=== PATIENT | male | born 1985 | race Caucasian/White ===

== ENCOUNTER 2023-11-28 17:16 | Inpatient (IN) | payer MEDICAID ==
[~2023-11-28] VITALS: Ht 180.3 cm; Wt 79.8 kg
[2023-11-28 17:16] VITALS: BP 168/90; PULSE 74; RESP 20; TEMP 98.4; O2SAT 100
[2023-11-28] MEDS ORDERED: NACL 0.9% 2,000 ML IV SCH (17:50)
[2023-11-28] MEDS: INSULIN REGULAR, HUMAN 100 UNIT/ML VIAL IVP ONE (18:25)
[2023-11-28 18:39] LABS: BASOPHILS # (AUTO) 0.1 K/uL (0.00-0.22); BASOPHILS % (AUTO) 0.3 % (0.0-2.0); EOSINOPHILS % (AUTO) 0.1 % (0.0-4.0); HEMATOCRIT 52.6 % (36-52); HEMOGLOBIN 16.3 g/dL (12.0-18.0); LYMPHOCYTES # (AUTO) 2.5 K/uL (2.0-11.5); LYMPHOCYTES % (AUTO) 11.3 % (20.5-51.1); MEAN CORPUSCULAR HEMOGLOBIN 30 pg (27-31); MEAN CORPUSCULAR HGB CONC 31 g/dL (33-37); MEAN CORPUSCULAR VOLUME 96.9 fL (80-94); MONOCYTES # (AUTO) 1.2 K/uL (0.8-1.0); MONOCYTES % (AUTO) 5.3 % (1.7-9.3); NEUTROPHILS # (AUTO) 18.2 K/uL (1.8-7.7); PLATELET COUNT (AUTO) 401 K/uL (140-450); RED BLOOD CELL COUNT(AUTO) 5.43 MIL/uL (4.20-6.10)
[2023-11-28] MEDS: SODIUM BICARBONATE 8.4% PFS 50 MEQ/50 ML SYR IVP ONE ×2 (18:40→21:30)
[2023-11-28] MEDS: INSULIN REGULAR, HUMAN 100 UNIT in NACL 0.9% 100 ML IV ONE ×2 (18:53→21:00)
[2023-11-28 18:55] LABS: ANION GAP 33.6 (8-16); CALCIUM 8.5 mg/dL (8.5-10.1); CREATININE 1.4 mg/dL (0.6-1.3); POTASSIUM 5.5 mmol/L (3.5-5.1)
[2023-11-28 18:59] LABS: INR 1.63 (0.8-1.2); PARTIAL THROMBOPLASTIN TIME 46.1 secs (22-35.6); PROTHROMBIN TIME 16.7 secs (10.8-13.4)
[2023-11-28 19:00] LABS: CARBON DIOXIDE 5.9 mmol/L (21-32)
[2023-11-28 19:02] LABS: ALANINE AMINOTRANSFERASE 28 U/L (12-78); ALBUMIN 3.8 g/dL (3.4-5.0); ALKALINE PHOSPHATASE 184 U/L (50-136); ASPARTATE AMINOTRANSFERASE 37 U/L (15-37); BILIRUBIN,DIRECT 0.1 mg/dL (0.0-0.3); CREATINE KINASE, TOTAL 206 U/L (39-308); LIPASE 180 U/L (16-77); TOTAL BILIRUBIN 0.6 mg/dL (0.0-1.0)
[2023-11-28 19:12] LABS: ACETONE, SERUM Negative (NEGATIVE)
[2023-11-28 19:14] LABS: LACTIC ACID 2.4 mmol/L (0.4-2.0)
[2023-11-28] MEDS: KCL 20 MEQ IN 100 mL PREMIX 200 ML IV ONE (19:28)
[2023-11-28] MEDS ORDERED: PIPERACILLIN/TAZOBACTAM 3.375 GM VIAL IV ONE (19:30)
[2023-11-28] MEDS: PIPERACILLIN/TAZOBACTAM 3.375 GM in DEXTROSE 5% 50 ML IV ONE (19:44)
[2023-11-28] MEDS ORDERED: LORazepam 2 MG/ML VIAL ONE (20:12)
[2023-11-28] MEDS ORDERED: INTUBATION KIT MC ONE (20:34)
[2023-11-28] MEDS ORDERED: SODIUM BICARBONATE 8.4% PFS 50 MEQ/50 ML SYR IVP ONE (20:34)
[2023-11-28] MEDS: INSULIN REGULAR, HUMAN 100 UNIT/ML VIAL IVP STA (20:44)
[2023-11-28 21:15] VITALS: BP 77/59; PULSE 75; PULSE 77; RESP 24; O2SAT 100
[2023-11-28] MEDS: NACL 0.9% 1,000 ML IV ONE ×2 (21:17→23:45)
[2023-11-28] MEDS ORDERED: ETOMIDATE 20 MG/10 ML VIAL IVP ONE (21:30)
[2023-11-28] MEDS: ETOMIDATE 20 MG/10 ML VIAL IVP ONE (21:33)
[2023-11-28] MEDS: ROCURONIUM 50 MG/5 ML VIAL IV ONE (21:33)
[2023-11-28 21:43] LABS: SALICYLATE 4.6 mg/dL (2.8-20.0)
[2023-11-28 21:46] VITALS: PULSE 89; RESP 30; O2SAT 100
[2023-11-28 21:46] LABS: ANION GAP 33.4 (8-16); CREATININE 1.3 mg/dL (0.6-1.3); POTASSIUM 4.6 mmol/L (3.5-5.1)
[2023-11-28] MEDS ORDERED: PROPOFOL 1000 MG/100 ML PREMIX 100 ML IV ONE (21:46)
[2023-11-28 21:59] LABS: CARBON DIOXIDE 5.2 mmol/L (21-32)
[2023-11-28] MEDS: PROPOFOL 1000 MG/100 ML PREMIX 100 ML IV ONE (22:00)
[2023-11-28 22:29] LABS: BLOOD GAS PCO2 32.3 mmHg (35-45); BLOOD GAS PH 6.713 (7.35-7.45); BLOOD GAS PO2 94.6 mmHg (75-100)
[2023-11-28 22:30] LABS: BLOOD GAS BASE EXCESS -32.3 mmol/L (-2.0-2.0); BLOOD GAS O2 SAT% 95.1 % (92.0-98.5)
[2023-11-28 22:50] LABS: APPEARANCE,URINE CLEAR (CLEAR); BILIRUBIN,URINE NEGATIVE (NEGATIVE); BLOOD, URINE 2+ (NEGATIVE); COLOR,URINE YELLOW (YELLOW); LEUKOCYTE ESTERASE ,URINE NEGATIVE (NEGATIVE); NITRITE, URINE NEGATIVE (NEGATIVE); PROTEIN,URINE 1+ (NEGATIVE); UGLUCOSE 3+ (NEGATIVE); UROBILINOGEN,URINE 0.2 EU/dL (0.2 - 1)
[2023-11-28] MEDS ORDERED: POTASSIUM CHL 20 MEQ/NACL 0.9% 1,000 ML IV SCH (22:50)
[2023-11-28] MEDS ORDERED: ONDANSETRON 4 MG/2 ML VIAL IVP PRN (22:50)
[2023-11-28] MEDS ORDERED: HYDROcodone/APAP 5/325 MG 1 TAB TAB PO PRN (22:50)
[2023-11-28 22:53] LABS: BACTERIA,URINE >30 (MANY) /HPF (None Seen); MUCUS,URINE 1+ /LPF (None Seen); RBC,URINE 0-5 /HPF (0-5); SQUAMOUS EPITHELIAL CELL,UR 0-3 (FEW) /LPF (0-3 (FEW)); WBC,URINE 0-5 /HPF (0-5)
[2023-11-28] MEDS ORDERED: BLOOD GLUCOSE MONITORING 1 DEV DEV FS SCH (23:00)
[2023-11-28] MEDS: fentaNYL citrate 1 MG in NACL 0.9% 80 ML IV PRN (23:15)
[2023-11-28 23:35] VITALS: PULSE 103; O2SAT 95
[2023-11-28] MEDS: LORazepam 2 MG/ML VIAL IVP STA (23:45)
[2023-11-28] MEDS: NOREPINEPHRINE 4 MG in DEXTROSE 5% 250 ML IV PRN (23:45)
[2023-11-28 23:46] LABS: FLU A ANTIGEN negative (NEGATIVE); FLU B ANTIGEN NEGATIVE (NEGATIVE)
[2023-11-28 23:47] LABS: BLOOD GAS BASE EXCESS -31.1 mmol/L (-2.0-2.0); BLOOD GAS HCO3 4.2 mmol/L (22-26); BLOOD GAS O2 SAT% 97.3 % (92.0-98.5); BLOOD GAS PCO2 30.5 mmHg (35-45); BLOOD GAS PO2 113.1 mmHg (75-100)
[2023-11-28 23:55] VITALS: PULSE 80; RESP 30; O2SAT 95
[2023-11-29] VITALS (21 sets, daily range): BP systolic 75–135; BP diastolic 36–94; PULSE 80–133; RESP 21–40; TEMP 91.5–100.3; O2SAT 91–100
[2023-11-29] MEDS: fentaNYL citrate 0.05 MG/ML VIAL ONE
[2023-11-29] MEDS: BLOOD GLUCOSE MONITORING 1 DEV DEV FS SCH (01:00)
[2023-11-29 01:20] LABS: ANION GAP 29.2 (8-16); CALCIUM 7.7 mg/dL (8.5-10.1); CREATININE 1.4 mg/dL (0.6-1.3); POTASSIUM 3.7 mmol/L (3.5-5.1)
[2023-11-29 01:24] LABS: MAGNESIUM 2.2 mg/dL (1.8-2.4); PHOSPHORUS 4.4 mg/dL (2.5-4.9)
[2023-11-29 01:27] LABS: CARBON DIOXIDE 9.5 mmol/L (21-32)
[2023-11-29] MEDS: NACL 0.9% 1,000 ML IV SCH ×3 (01:40→08:53)
[2023-11-29] MEDS: DEXT 5% / NACL 0.45% 1,000 ML IV SCH (01:40)
[2023-11-29] MEDS: SODIUM BICARBONATE 8.4% PFS 50 MEQ/50 ML SYR IVP ONE (02:15)
[2023-11-29] MEDS: NACL 0.9% 1,000 ML IV ONE (02:17)
[2023-11-29] MEDS: INSULIN REGULAR, HUMAN 100 UNIT in NACL 0.9% 100 ML IV SCH (02:18)
[2023-11-29] MEDS: SODIUM BICARBONATE 8.4% PFS 50 MEQ/50 ML SYR IVP SCH ×4 (02:22→14:34)
[2023-11-29 04:03] LABS: BASOPHILS # (AUTO) 0.1 K/uL (0.00-0.22); BASOPHILS % (AUTO) 0.4 % (0.0-2.0); EOSINOPHILS % (AUTO) 0.1 % (0.0-4.0); HEMATOCRIT 39.4 % (36-52); HEMOGLOBIN 13.2 g/dL (12.0-18.0); LYMPHOCYTES # (AUTO) 2.8 K/uL (2.0-11.5); LYMPHOCYTES % (AUTO) 15.4 % (20.5-51.1); MEAN CORPUSCULAR HEMOGLOBIN 30 pg (27-31); MEAN CORPUSCULAR HGB CONC 34 g/dL (33-37); MEAN CORPUSCULAR VOLUME 89.4 fL (80-94); MONOCYTES # (AUTO) 0.8 K/uL (0.8-1.0); MONOCYTES % (AUTO) 4.7 % (1.7-9.3); NEUTROPHILS # (AUTO) 14.3 K/uL (1.8-7.7); NEUTROPHILS % (AUTO) 79.4 % (42.2-75.2); PLATELET COUNT (AUTO) 241 K/uL (140-450); RED BLOOD CELL COUNT(AUTO) 4.41 MIL/uL (4.20-6.10)
[2023-11-29] MEDS: NOREPINEPHRINE 4 MG/4 ML VIAL IV ONE ×3 (04:08→09:41)
[2023-11-29 04:15] LABS: ANION GAP 28.2 (8-16); CALCIUM 7.3 mg/dL (8.5-10.1); CREATININE 1.6 mg/dL (0.6-1.3)
[2023-11-29 04:17] LABS: PHOSPHORUS 3.3 mg/dL (2.5-4.9)
[2023-11-29 04:28] LABS: CARBON DIOXIDE 8.8 mmol/L (21-32)
[2023-11-29] MEDS: PROPOFOL 1000 MG/100 ML PREMIX 100 ML IV PRN (05:54)
[2023-11-29] MEDS ORDERED: COMMUNICATION ORDER MC PRN (08:45)
[2023-11-29 09:17] LABS: ANION GAP 24.2 (8-16); CALCIUM 7.2 mg/dL (8.5-10.1); CARBON DIOXIDE 11.4 mmol/L (21-32); CREATININE 2.2 mg/dL (0.6-1.3); POTASSIUM 3.6 mmol/L (3.5-5.1)
[2023-11-29 09:19] LABS: BLOOD GAS PCO2 20.5 mmHg (35-45); BLOOD GAS PH 7.069 (7.35-7.45); BLOOD GAS PO2 106.2 mmHg (75-100)
[2023-11-29 09:20] LABS: BLOOD GAS BASE EXCESS -22.7 mmol/L (-2.0-2.0); BLOOD GAS HCO3 5.8 mmol/L (22-26); BLOOD GAS O2 SAT% 98.1 % (92.0-98.5)
[2023-11-29 09:20] LABS: MAGNESIUM 1.8 mg/dL (1.8-2.4)
[2023-11-29] MEDS: DOCUSATE SODIUM 100 MG GELCAP PO SCH (09:25)
[2023-11-29] MEDS: PANTOPRAZOLE 40 MG INJ VIAL IVP SCH (09:25)
[2023-11-29] MEDS: NOREPINEPHRINE 16 MG in DEXTROSE 5% 250 ML IV PRN (09:45)
[2023-11-29 09:57] LABS: PHOSPHORUS 0.7 mg/dL (2.5-4.9)
[2023-11-29] MEDS ORDERED: VANCOMYCIN PER PHARMACY MC PRN (11:20)
[2023-11-29 11:50] LABS: ALBUMIN 2.1 g/dL (3.4-5.0); ANION GAP 23.5 (8-16); CALCIUM 7.4 mg/dL (8.5-10.1); CARBON DIOXIDE 11.9 mmol/L (21-32); CREATININE 2.4 mg/dL (0.6-1.3); POTASSIUM 3.4 mmol/L (3.5-5.1); TOTAL BILIRUBIN 0.5 mg/dL (0.0-1.0); TOTAL PROTEIN, SERUM 5.3 g/dL (6.4-8.2)
[2023-11-29] MEDS: POTASSIUM PHOSPHATE 30 MM in NACL 0.9% 500 ML IV SCH (12:03)
[2023-11-29] MEDS: PIPERACILLIN/TAZOBACTAM 3.375 GM in DEXTROSE 5% 50 ML IV SCH (12:03)
[2023-11-29] MEDS ORDERED: NACL 0.9% 1,000 ML IV SCH ×2 (12:15→14:20)
[2023-11-29] MEDS ORDERED: FOAM DRESSING TP PRN (13:00)
[2023-11-29] MEDS ORDERED: GAUZE TP PRN (13:00)
[2023-11-29] MEDS: GAUZE TP SCH (13:10)
[2023-11-29] MEDS: VANCOMYCIN 1,500 MG in DEXTROSE 5% 500 ML IV SCH (13:14)
[2023-11-29 13:15] LABS: ANION GAP 25.2 (8-16); CALCIUM 7.4 mg/dL (8.5-10.1); CREATININE 2.5 mg/dL (0.6-1.3); POTASSIUM 3.3 mmol/L (3.5-5.1)
[2023-11-29 13:19] LABS: MAGNESIUM 1.7 mg/dL (1.8-2.4)
[2023-11-29 13:33] LABS: CARBON DIOXIDE 8.1 mmol/L (21-32)
[2023-11-29 13:35] LABS: PHOSPHORUS 0.6 mg/dL (2.5-4.9)
[2023-11-29] MEDS: SODIUM BICARBONATE 8.4% 100 MEQ in NACL 0.45% 1,000 ML IV SCH (15:59)
[2023-11-29 17:17] LABS: ANION GAP 22.4 (8-16); CARBON DIOXIDE 12.7 mmol/L (21-32); CREATININE 2.7 mg/dL (0.6-1.3); POTASSIUM 3.1 mmol/L (3.5-5.1)
[2023-11-29] MEDS: ACETAMINOPHEN 650 MG/20.3 ML UDC PO PRN (17:49)
[2023-11-29] MEDS: KCL 20 MEQ IN 100 mL PREMIX 100 ML IV PRN (18:10)
[2023-11-29] MEDS: fentaNYL citrate 1 MG in NACL 0.9% 80 ML IV PRN (18:41)
[2023-11-29] MEDS: MEROPENEM 1,000 MG in NACL 0.9% 50 ML IV SCH (20:29)
[2023-11-29 20:50] LABS: ANION GAP 21.2 (8-16); CALCIUM 6.8 mg/dL (8.5-10.1); CREATININE 2.7 mg/dL (0.6-1.3); POTASSIUM 3.2 mmol/L (3.5-5.1)
[2023-11-30] VITALS (30 sets, daily range): BP systolic 11–143; BP diastolic 56–89; PULSE 111–130; RESP 20–35; TEMP 98.8–101; O2SAT 96–98
[2023-11-30 00:59] LABS: ANION GAP 19.7 (8-16); CALCIUM 6.8 mg/dL (8.5-10.1); CARBON DIOXIDE 15.2 mmol/L (21-32); CREATININE 2.9 mg/dL (0.6-1.3)
[2023-11-30 01:01] LABS: POTASSIUM 2.9 mmol/L (3.5-5.1)
[2023-11-30] MEDS: NOREPINEPHRINE 4 MG/4 ML VIAL IV ONE (01:28)
[2023-11-30] MEDS: KCL 20 MEQ IN 100 mL PREMIX 200 ML IV PRN (01:34)
[2023-11-30 04:17] LABS: BASOPHILS % (AUTO) 0.1 % (0.0-2.0); EOSINOPHILS % (AUTO) 0.1 % (0.0-4.0); HEMATOCRIT 37.3 % (36-52); HEMOGLOBIN 13.6 g/dL (12.0-18.0); LYMPHOCYTES # (AUTO) 0.5 K/uL (2.0-11.5); MEAN CORPUSCULAR HEMOGLOBIN 32 pg (27-31); MEAN CORPUSCULAR HGB CONC 37 g/dL (33-37); MEAN CORPUSCULAR VOLUME 86.8 fL (80-94); MONOCYTES # (AUTO) 0.7 K/uL (0.8-1.0); MONOCYTES % (AUTO) 6.6 % (1.7-9.3); NEUTROPHILS % (AUTO) 88.2 % (42.2-75.2); PLATELET COUNT (AUTO) 126 K/uL (140-450); RED CELL DISTRIBUTION WIDTH 15.7 % (11.6-13.7); WHITE BLOOD COUNT (AUTO) 10.2 K/uL (4.8-10.8)
[2023-11-30 04:37] LABS: ANION GAP 21.5 (8-16); CALCIUM 6.6 mg/dL (8.5-10.1); CARBON DIOXIDE 13.6 mmol/L (21-32); CREATININE 2.9 mg/dL (0.6-1.3); POTASSIUM 3.1 mmol/L (3.5-5.1)
[2023-11-30 04:42] LABS: MAGNESIUM 1.5 mg/dL (1.8-2.4)
[2023-11-30 04:46] LABS: PHOSPHORUS 0.9 mg/dL (2.5-4.9)
[2023-11-30] MEDS: PANTOPRAZOLE 40 MG INJ VIAL IVP SCH (08:20)
[2023-11-30] MEDS: DOCUSATE 100 MG/10 ML UDC GT SCH (08:21)
[2023-11-30 08:31] LABS: ANION GAP 21.1 (8-16); CALCIUM 6.3 mg/dL (8.5-10.1); CARBON DIOXIDE 15.3 mmol/L (21-32); POTASSIUM 3.4 mmol/L (3.5-5.1)
[2023-11-30 08:35] LABS: MAGNESIUM 1.3 mg/dL (1.8-2.4)
[2023-11-30] MEDS: POTASSIUM PHOSPHATE 15 MM in NACL 0.9% 250 ML IV ONE (09:34)
[2023-11-30] MEDS: MAG SULF 2000 MG/WATER PREMIX 100 ML IV PRN (11:06)
[2023-11-30 12:33] LABS: ANION GAP 20.1 (8-16); CALCIUM 6.3 mg/dL (8.5-10.1); CARBON DIOXIDE 16.3 mmol/L (21-32); CREATININE 3.3 mg/dL (0.6-1.3); POTASSIUM 3.4 mmol/L (3.5-5.1)
[2023-11-30 12:37] LABS: MAGNESIUM 1.4 mg/dL (1.8-2.4); PHOSPHORUS 1.7 mg/dL (2.5-4.9)
[2023-11-30 17:25] LABS: ANION GAP 17.1 (8-16); CALCIUM 6.2 mg/dL (8.5-10.1); CARBON DIOXIDE 19.1 mmol/L (21-32); CREATININE 3.4 mg/dL (0.6-1.3); POTASSIUM 3.2 mmol/L (3.5-5.1)
[2023-11-30 17:41] LABS: MAGNESIUM 1.7 mg/dL (1.8-2.4); PHOSPHORUS 1.7 mg/dL (2.5-4.9)
[2023-11-30 20:49] LABS: ANION GAP 17.8 (8-16); CALCIUM 6.3 mg/dL (8.5-10.1); CARBON DIOXIDE 18.2 mmol/L (21-32); CREATININE 3.5 mg/dL (0.6-1.3)
[2023-11-30 21:04] LABS: MAGNESIUM 1.7 mg/dL (1.8-2.4); PHOSPHORUS 1.6 mg/dL (2.5-4.9)
[2023-12-01] VITALS (35 sets, daily range): BP systolic 93–124; BP diastolic 61–81; PULSE 76–111; RESP 13–32; TEMP 97.9–98.7; O2SAT 96–100
[2023-12-01 00:56] LABS: ANION GAP 14.3 (8-16); CALCIUM 6.3 mg/dL (8.5-10.1); CARBON DIOXIDE 20.6 mmol/L (21-32); CREATININE 3.5 mg/dL (0.6-1.3)
[2023-12-01 00:59] LABS: POTASSIUM 2.9 mmol/L (3.5-5.1)
[2023-12-01 01:02] LABS: MAGNESIUM 1.9 mg/dL (1.8-2.4); PHOSPHORUS 1.7 mg/dL (2.5-4.9)
[2023-12-01 01:29] LABS: BLOOD GAS HCO3 17.2 mmol/L (22-26); BLOOD GAS PCO2 27.9 mmHg (35-45); BLOOD GAS PH 7.408 (7.35-7.45); BLOOD GAS PO2 73.8 mmHg (75-100)
[2023-12-01 01:33] LABS: BLOOD GAS O2 SAT% 96.2 % (92.0-98.5)
[2023-12-01 05:42] LABS: BASOPHILS % (AUTO) 0.2 % (0.0-2.0); EOSINOPHILS % (AUTO) 0.2 % (0.0-4.0); HEMATOCRIT 31.4 % (36-52); HEMOGLOBIN 11.3 g/dL (12.0-18.0); LYMPHOCYTES # (AUTO) 0.8 K/uL (2.0-11.5); LYMPHOCYTES % (AUTO) 7.3 % (20.5-51.1); MEAN CORPUSCULAR HEMOGLOBIN 31 pg (27-31); MEAN CORPUSCULAR HGB CONC 36 g/dL (33-37); MEAN CORPUSCULAR VOLUME 86.2 fL (80-94); MONOCYTES # (AUTO) 0.4 K/uL (0.8-1.0); MONOCYTES % (AUTO) 3.1 % (1.7-9.3); NEUTROPHILS # (AUTO) 10.1 K/uL (1.8-7.7); NEUTROPHILS % (AUTO) 89.2 % (42.2-75.2); PLATELET COUNT (AUTO) 95 K/uL (140-450); RED BLOOD CELL COUNT(AUTO) 3.65 MIL/uL (4.20-6.10); RED CELL DISTRIBUTION WIDTH 15.9 % (11.6-13.7); WHITE BLOOD COUNT (AUTO) 11.4 K/uL (4.8-10.8)
[2023-12-01 05:58] LABS: CALCIUM 6.6 mg/dL (8.5-10.1); CARBON DIOXIDE 18.9 mmol/L (21-32); CREATININE 3.5 mg/dL (0.6-1.3)
[2023-12-01 06:01] LABS: POTASSIUM 2.9 mmol/L (3.5-5.1)
[2023-12-01 06:32] LABS: MAGNESIUM 2.9 mg/dL (1.8-2.4); PHOSPHORUS 1.6 mg/dL (2.5-4.9)
[2023-12-01 08:39] LABS: BLOOD GAS PCO2 35.2 mmHg (35-45); BLOOD GAS PH 7.347 (7.35-7.45)
[2023-12-01 08:42] LABS: BLOOD GAS PO2 34.2 mmHg (75-100)
[2023-12-01 08:43] LABS: BLOOD GAS BASE EXCESS -6.1 mmol/L (-2.0-2.0); BLOOD GAS HCO3 18.9 mmol/L (22-26)
[2023-12-01 09:18] LABS: ANION GAP 14.5 (8-16); CALCIUM 6.4 mg/dL (8.5-10.1); CARBON DIOXIDE 21.1 mmol/L (21-32); CREATININE 3.5 mg/dL (0.6-1.3)
[2023-12-01 09:20] LABS: POTASSIUM 2.6 mmol/L (3.5-5.1)
[2023-12-01 09:24] LABS: MAGNESIUM 2.6 mg/dL (1.8-2.4); PHOSPHORUS 1.9 mg/dL (2.5-4.9)
[2023-12-01 11:20] LABS: APPEARANCE,URINE CLEAR (CLEAR); BILIRUBIN,URINE NEGATIVE (NEGATIVE); BLOOD, URINE 2+ (NEGATIVE); COLOR,URINE YELLOW (YELLOW); LEUKOCYTE ESTERASE ,URINE NEGATIVE (NEGATIVE); NITRITE, URINE NEGATIVE (NEGATIVE); PROTEIN,URINE NEGATIVE (NEGATIVE); UGLUCOSE TRACE (NEGATIVE); UROBILINOGEN,URINE 0.2 EU/dL (0.2 - 1)
[2023-12-01 11:36] LABS: BACTERIA,URINE FEW /HPF (None Seen); RBC,URINE 11-20 (MOD) /HPF (0-5); SQUAMOUS EPITHELIAL CELL,UR None Seen /LPF (0-3 (FEW)); WBC,URINE 0-5 /HPF (0-5)
[2023-12-01] MEDS: VANCOMYCIN 1.25GM PREMIX 250 ML IV SCH (11:36)
[2023-12-01 12:25] LABS: ANION GAP 15.7 (8-16); CALCIUM 6.4 mg/dL (8.5-10.1); CARBON DIOXIDE 21.1 mmol/L (21-32); CREATININE 3.5 mg/dL (0.6-1.3)
[2023-12-01 12:29] LABS: MAGNESIUM 2.6 mg/dL (1.8-2.4); POTASSIUM 2.8 mmol/L (3.5-5.1)
[2023-12-01] MEDS: NACL 0.45% 1,000 ML IV SCH (13:26)
[2023-12-01] MEDS: BLOOD GLUCOSE MONITORING 1 DEV DEV FS SCH (16:23)
[2023-12-01] MEDS: INSULIN LANTUS 100 UNITS/ML 10 ML VIAL SUBQ SCH (16:26)
[2023-12-01 17:32] LABS: ANION GAP 20.2 (8-16); CALCIUM 6.6 mg/dL (8.5-10.1); CARBON DIOXIDE 17.3 mmol/L (21-32); CREATININE 3.4 mg/dL (0.6-1.3); POTASSIUM 3.5 mmol/L (3.5-5.1)
[2023-12-01 18:09] LABS: MAGNESIUM 2.5 mg/dL (1.8-2.4); PHOSPHORUS 2.5 mg/dL (2.5-4.9)
[2023-12-01] MEDS: INSULIN LISPRO SLIDING SCALE 100 UNITS/ML VIAL SUBQ PRN (20:29)
[2023-12-02] VITALS (33 sets, daily range): BP systolic 95–132; BP diastolic 57–79; PULSE 74–91; RESP 20–33; TEMP 97.8–98.4; O2SAT 96–100
[2023-12-02 05:20] LABS: BASOPHILS % (AUTO) 0.5 % (0.0-2.0); EOSINOPHILS % (AUTO) 0.4 % (0.0-4.0); HEMATOCRIT 29.1 % (36-52); HEMOGLOBIN 10.3 g/dL (12.0-18.0); LYMPHOCYTES # (AUTO) 0.7 K/uL (2.0-11.5); LYMPHOCYTES % (AUTO) 9.2 % (20.5-51.1); MEAN CORPUSCULAR HEMOGLOBIN 30 pg (27-31); MEAN CORPUSCULAR HGB CONC 35 g/dL (33-37); MEAN CORPUSCULAR VOLUME 85.4 fL (80-94); MONOCYTES # (AUTO) 0.5 K/uL (0.8-1.0); MONOCYTES % (AUTO) 6.4 % (1.7-9.3); NEUTROPHILS # (AUTO) 6.8 K/uL (1.8-7.7); NEUTROPHILS % (AUTO) 83.5 % (42.2-75.2); PLATELET COUNT (AUTO) 93 K/uL (140-450); RED BLOOD CELL COUNT(AUTO) 3.41 MIL/uL (4.20-6.10); RED CELL DISTRIBUTION WIDTH 16.6 % (11.6-13.7); WHITE BLOOD COUNT (AUTO) 8.1 K/uL (4.8-10.8)
[2023-12-02 06:20] LABS: CALCIUM 6.6 mg/dL (8.5-10.1); CARBON DIOXIDE 20.9 mmol/L (21-32); CREATININE 3.2 mg/dL (0.6-1.3)
[2023-12-02 06:23] LABS: POTASSIUM 2.9 mmol/L (3.5-5.1)
[2023-12-02] MEDS: ALBUTEROL SULFATE/IPRATROPIU 3 ML SOL IH PRN (07:44)
[2023-12-02] MEDS: FOAM DRESSING TP SCH (08:24)
[2023-12-02] MEDS: FUROSEMIDE 40 MG/4 ML VIAL IVP SCH (09:33)
[2023-12-02] MEDS: QUEtiapine FUMARATE 100 MG TAB PO SCH (13:36)
[2023-12-02] MEDS: DEXMEDETOMIDINE HCL 400 MCG in NACL 0.9% 96 ML IV PRN (13:39)
[2023-12-02] MEDS: ALBUTEROL SULFATE/IPRATROPIU 3 ML SOL IH SCH (19:32)
[2023-12-02] MEDS: KCL 20 MEQ IN 100 mL PREMIX 200 ML IV ONE (20:20)
[2023-12-02] MEDS: INSULIN LANTUS 100 UNITS/ML 10 ML VIAL SUBQ SCH (20:25)
[2023-12-03] VITALS (35 sets, daily range): BP systolic 91–136; BP diastolic 59–85; PULSE 55–115; RESP 18–36; TEMP 97.8–99; O2SAT 95–100
[2023-12-03 04:23] LABS: BASOPHILS % (AUTO) 0.4 % (0.0-2.0); HEMATOCRIT 28.3 % (36-52); HEMOGLOBIN 9.8 g/dL (12.0-18.0); LYMPHOCYTES # (AUTO) 0.7 K/uL (2.0-11.5); LYMPHOCYTES % (AUTO) 14.7 % (20.5-51.1); MEAN CORPUSCULAR HEMOGLOBIN 30 pg (27-31); MEAN CORPUSCULAR HGB CONC 35 g/dL (33-37); MEAN CORPUSCULAR VOLUME 86.4 fL (80-94); MONOCYTES # (AUTO) 0.7 K/uL (0.8-1.0); MONOCYTES % (AUTO) 14.2 % (1.7-9.3); NEUTROPHILS # (AUTO) 3.5 K/uL (1.8-7.7); NEUTROPHILS % (AUTO) 69.7 % (42.2-75.2); PLATELET COUNT (AUTO) 79 K/uL (140-450); RED BLOOD CELL COUNT(AUTO) 3.28 MIL/uL (4.20-6.10); RED CELL DISTRIBUTION WIDTH 16.5 % (11.6-13.7)
[2023-12-03 07:37] LABS: ALBUMIN 1.5 g/dL (3.4-5.0); ANION GAP 18.6 (8-16); CALCIUM 7.7 mg/dL (8.5-10.1); CARBON DIOXIDE 21.2 mmol/L (21-32); CREATININE 3.5 mg/dL (0.6-1.3); TOTAL BILIRUBIN 0.9 mg/dL (0.0-1.0); TOTAL PROTEIN, SERUM 5.1 g/dL (6.4-8.2)
[2023-12-03 07:47] LABS: POTASSIUM 2.8 mmol/L (3.5-5.1)
[2023-12-03] MEDS: SODIUM BICARBONATE 8.4% 50 MEQ in NACL 0.9% 1,000 ML IV SCH (10:18)
[2023-12-03] MEDS: POTASSIUM CHLORIDE 20% 40 MEQ/15 ML UDC GT SCH ×2 (10:22→17:18)
[2023-12-03 16:32] LABS: ALBUMIN 1.6 g/dL (3.4-5.0); ANION GAP 13.7 (8-16); CALCIUM 8.2 mg/dL (8.5-10.1); CARBON DIOXIDE 25.3 mmol/L (21-32); CREATININE 3.4 mg/dL (0.6-1.3); TOTAL BILIRUBIN 0.6 mg/dL (0.0-1.0); TOTAL PROTEIN, SERUM 5.6 g/dL (6.4-8.2)
[2023-12-03] MEDS: FLUCONAZOLE 200 MG/NS PREMIX 100 ML IV SCH (20:29)
[2023-12-03] MEDS: DESMOPRESSIN 4 MCG/ML AMP IV ONE (21:43)
[2023-12-03] MEDS: NACL 0.45% 1,000 ML IV SCH (23:23)
[2023-12-04] VITALS (35 sets, daily range): BP systolic 64–135; BP diastolic 59–88; PULSE 51–82; RESP 15–25; TEMP 97.3–98.6; O2SAT 96–100
[2023-12-04] MEDS: KCL 20 MEQ IN 100 mL PREMIX 200 ML IV ONE (00:22)
[2023-12-04 05:27] LABS: BASOPHILS % (AUTO) 0.3 % (0.0-2.0); EOSINOPHILS # (AUTO) 0.1 K/uL (0-0.4); EOSINOPHILS % (AUTO) 0.9 % (0.0-4.0); HEMATOCRIT 28.4 % (36-52); HEMOGLOBIN 9.9 g/dL (12.0-18.0); LYMPHOCYTES # (AUTO) 1.1 K/uL (2.0-11.5); LYMPHOCYTES % (AUTO) 18.5 % (20.5-51.1); MEAN CORPUSCULAR HEMOGLOBIN 30 pg (27-31); MEAN CORPUSCULAR HGB CONC 35 g/dL (33-37); MEAN CORPUSCULAR VOLUME 86.7 fL (80-94); MONOCYTES % (AUTO) 17.3 % (1.7-9.3); NEUTROPHILS # (AUTO) 3.6 K/uL (1.8-7.7); PLATELET COUNT (AUTO) 69 K/uL (140-450); RED BLOOD CELL COUNT(AUTO) 3.28 MIL/uL (4.20-6.10); RED CELL DISTRIBUTION WIDTH 16.6 % (11.6-13.7); WHITE BLOOD COUNT (AUTO) 5.8 K/uL (4.8-10.8)
[2023-12-04] MEDS: DEXMEDETOMIDINE HCL 100 MCG/ML 2 ML VIAL IV ONE (06:44)
[2023-12-04] MEDS: FUROSEMIDE 40 MG/4 ML VIAL IVP SCH (08:47)
[2023-12-04 12:07] LABS: ANION GAP 16.1 (8-16); CALCIUM 8.1 mg/dL (8.5-10.1); CARBON DIOXIDE 25.1 mmol/L (21-32); CREATININE 3.4 mg/dL (0.6-1.3); POTASSIUM 3.2 mmol/L (3.5-5.1)
[2023-12-04] MEDS: NACL 0.45% 1,000 ML IV SCH (12:59)
[2023-12-04] MEDS: DESMOPRESSIN 4 MCG/ML AMP IV SCH (14:22)
[2023-12-04] MEDS: LORazepam 1 MG TAB PO PRN (14:42)
[2023-12-04] MEDS: LORazepam 2 MG/ML VIAL ONE (21:43)
[2023-12-04] MEDS: LORazepam 2 MG/ML VIAL IVP ONE (21:50)
[2023-12-05] VITALS (35 sets, daily range): BP systolic 92–116; BP diastolic 53–81; PULSE 54–88; RESP 13–26; TEMP 97.7–99.3; O2SAT 96–100
[2023-12-05 06:54] LABS: ANION GAP 12.2 (8-16); CARBON DIOXIDE 27.4 mmol/L (21-32); CREATININE 2.8 mg/dL (0.6-1.3)
[2023-12-05] MEDS: MIDODRINE 5 MG TAB PO SCH (07:00)
[2023-12-05 07:16] LABS: POTASSIUM 2.6 mmol/L (3.5-5.1)
[2023-12-05 07:44] LABS: HEMOGLOBIN 9.6 g/dL (12.0-18.0); MEAN CORPUSCULAR HEMOGLOBIN 30 pg (27-31); MEAN CORPUSCULAR HGB CONC 34 g/dL (33-37); MEAN CORPUSCULAR VOLUME 87.8 fL (80-94); PLATELET COUNT (AUTO) 76 K/uL (140-450); RED BLOOD CELL COUNT(AUTO) 3.19 MIL/uL (4.20-6.10); RED CELL DISTRIBUTION WIDTH 15.8 % (11.6-13.7); WHITE BLOOD COUNT (AUTO) 7.6 K/uL (4.8-10.8)
[2023-12-05 07:45] LABS: BASOPHILS % (AUTO) 0.1 % (0.0-2.0); EOSINOPHILS # (AUTO) 0.2 K/uL (0-0.4); EOSINOPHILS % (AUTO) 2.2 % (0.0-4.0); LYMPHOCYTES # (AUTO) 1.7 K/uL (2.0-11.5); LYMPHOCYTES % (AUTO) 22.1 % (20.5-51.1); MONOCYTES # (AUTO) 0.8 K/uL (0.8-1.0); MONOCYTES % (AUTO) 10.7 % (1.7-9.3); NEUTROPHILS # (AUTO) 4.9 K/uL (1.8-7.7); NEUTROPHILS % (AUTO) 64.9 % (42.2-75.2)
[2023-12-05] MEDS ORDERED: QUEtiapine FUMARATE 25 MG TAB PO SCH (09:00)
[2023-12-05] MEDS: DEXTROSE 5% 1,000 ML IV SCH (09:49)
[2023-12-05] MEDS: POTASSIUM CHLORIDE 20% 40 MEQ/15 ML UDC NG SCH (10:01)
[2023-12-05] MEDS: DESMOPRESSIN 4 MCG/ML AMP IV SCH (10:01)
[2023-12-05] MEDS: ZOLPIDEM 5 MG TAB PO PRN (21:07)
[2023-12-06] VITALS (32 sets, daily range): BP systolic 87–140; BP diastolic 34–73; PULSE 55–91; RESP 15–65; TEMP 97.2–99.7; O2SAT 97–100
[2023-12-06 05:56] LABS: BASOPHILS % (AUTO) 0.2 % (0.0-2.0); EOSINOPHILS # (AUTO) 0.2 K/uL (0-0.4); EOSINOPHILS % (AUTO) 2.5 % (0.0-4.0); HEMATOCRIT 26.8 % (36-52); LYMPHOCYTES # (AUTO) 1.1 K/uL (2.0-11.5); LYMPHOCYTES % (AUTO) 15.2 % (20.5-51.1); MEAN CORPUSCULAR HEMOGLOBIN 30 pg (27-31); MEAN CORPUSCULAR HGB CONC 34 g/dL (33-37); MONOCYTES # (AUTO) 0.5 K/uL (0.8-1.0); MONOCYTES % (AUTO) 6.4 % (1.7-9.3); NEUTROPHILS # (AUTO) 5.5 K/uL (1.8-7.7); NEUTROPHILS % (AUTO) 75.7 % (42.2-75.2); PLATELET COUNT (AUTO) 79 K/uL (140-450); RED BLOOD CELL COUNT(AUTO) 3.01 MIL/uL (4.20-6.10); RED CELL DISTRIBUTION WIDTH 15.7 % (11.6-13.7); WHITE BLOOD COUNT (AUTO) 7.2 K/uL (4.8-10.8)
[2023-12-06 08:12] LABS: ANION GAP 14.7 (8-16); CALCIUM 7.5 mg/dL (8.5-10.1); CARBON DIOXIDE 25.1 mmol/L (21-32); CREATININE 2.2 mg/dL (0.6-1.3)
[2023-12-06 08:19] LABS: POTASSIUM 2.8 mmol/L (3.5-5.1)
[2023-12-06] MEDS: INSULIN LANTUS 100 UNITS/ML 10 ML VIAL SUBQ SCH ×2 (09:30→21:22)
[2023-12-06] MEDS: POTASSIUM CHLORIDE 20% 40 MEQ/15 ML UDC GT SCH (12:13)
[2023-12-06] MEDS: NACL 0.45% 1,000 ML IV SCH (13:05)
[2023-12-06 14:16] LABS: FIBRINOGEN 487 mg/dL (200-400); INR 1.04 (0.8-1.2); PARTIAL THROMBOPLASTIN TIME 28.8 secs (22-35.6); PROTHROMBIN TIME 10.9 secs (10.8-13.4)
[2023-12-06 14:48] LABS: D-DIMER > 5000 ng/ml (0-400)
[2023-12-06] MEDS: DESMOPRESSIN 4 MCG/ML AMP IV SCH (15:04)
[2023-12-06] MEDS: LORazepam 2 MG/ML VIAL IVP PRN (23:23)
[2023-12-07] VITALS (33 sets, daily range): BP systolic 99–126; BP diastolic 37–77; PULSE 58–93; RESP 12–23; TEMP 97.3–98.6; O2SAT 97–100
[2023-12-07 05:50] LABS: BASOPHILS % (AUTO) 0.3 % (0.0-2.0); EOSINOPHILS # (AUTO) 0.2 K/uL (0-0.4); EOSINOPHILS % (AUTO) 2.9 % (0.0-4.0); HEMATOCRIT 24.8 % (36-52); HEMOGLOBIN 8.4 g/dL (12.0-18.0); LYMPHOCYTES # (AUTO) 1.2 K/uL (2.0-11.5); LYMPHOCYTES % (AUTO) 19.6 % (20.5-51.1); MEAN CORPUSCULAR HEMOGLOBIN 30 pg (27-31); MEAN CORPUSCULAR HGB CONC 34 g/dL (33-37); MEAN CORPUSCULAR VOLUME 88.5 fL (80-94); MONOCYTES # (AUTO) 0.4 K/uL (0.8-1.0); MONOCYTES % (AUTO) 6.1 % (1.7-9.3); NEUTROPHILS # (AUTO) 4.4 K/uL (1.8-7.7); NEUTROPHILS % (AUTO) 71.1 % (42.2-75.2); PLATELET COUNT (AUTO) 85 K/uL (140-450); RED CELL DISTRIBUTION WIDTH 15.8 % (11.6-13.7); WHITE BLOOD COUNT (AUTO) 6.2 K/uL (4.8-10.8)
[2023-12-07 06:28] LABS: ALBUMIN 1.5 g/dL (3.4-5.0); ANION GAP 13.6 (8-16); CALCIUM 7.8 mg/dL (8.5-10.1); CARBON DIOXIDE 25.2 mmol/L (21-32); CREATININE 2.1 mg/dL (0.6-1.3); TOTAL BILIRUBIN 0.4 mg/dL (0.0-1.0); TOTAL PROTEIN, SERUM 5.6 g/dL (6.4-8.2)
[2023-12-07 06:48] LABS: POTASSIUM 2.8 mmol/L (3.5-5.1)
[2023-12-07] MEDS: POTASSIUM CHLORIDE 20% 40 MEQ/15 ML UDC GT SCH (09:53)
[2023-12-07] MEDS: diazePAM 2 MG TAB PO SCH (09:55)
[2023-12-07] MEDS: KCL 20 MEQ IN 100 mL PREMIX 100 ML IV SCH (09:59)
[2023-12-08] VITALS (31 sets, daily range): BP systolic 92–127; BP diastolic 51–76; PULSE 40–94; RESP 13–26; TEMP 97.1–99.5; O2SAT 64–100
[2023-12-08 05:34] LABS: BASOPHILS % (AUTO) 0.3 % (0.0-2.0); EOSINOPHILS # (AUTO) 0.1 K/uL (0-0.4); EOSINOPHILS % (AUTO) 2.7 % (0.0-4.0); HEMATOCRIT 24.1 % (36-52); HEMOGLOBIN 8.2 g/dL (12.0-18.0); LYMPHOCYTES % (AUTO) 23.2 % (20.5-51.1); MEAN CORPUSCULAR HEMOGLOBIN 30 pg (27-31); MEAN CORPUSCULAR HGB CONC 34 g/dL (33-37); MEAN CORPUSCULAR VOLUME 88.2 fL (80-94); MONOCYTES # (AUTO) 0.3 K/uL (0.8-1.0); MONOCYTES % (AUTO) 6.4 % (1.7-9.3); NEUTROPHILS # (AUTO) 2.9 K/uL (1.8-7.7); NEUTROPHILS % (AUTO) 67.4 % (42.2-75.2); PLATELET COUNT (AUTO) 107 K/uL (140-450); RED BLOOD CELL COUNT(AUTO) 2.73 MIL/uL (4.20-6.10); RED CELL DISTRIBUTION WIDTH 15.1 % (11.6-13.7); WHITE BLOOD COUNT (AUTO) 4.4 K/uL (4.8-10.8)
[2023-12-08 06:13] LABS: ALBUMIN 1.4 g/dL (3.4-5.0); ANION GAP 10.4 (8-16); CALCIUM 7.8 mg/dL (8.5-10.1); CARBON DIOXIDE 25.8 mmol/L (21-32); CREATININE 1.5 mg/dL (0.6-1.3); POTASSIUM 3.2 mmol/L (3.5-5.1); TOTAL BILIRUBIN 0.3 mg/dL (0.0-1.0); TOTAL PROTEIN, SERUM 5.9 g/dL (6.4-8.2)
[2023-12-08] MEDS: DESMOPRESSIN 4 MCG/ML AMP IV SCH (17:00)
[2023-12-08] MEDS: POTASSIUM CHLORIDE 20% 40 MEQ/15 ML UDC GT SCH (17:03)
[2023-12-09] VITALS (32 sets, daily range): BP systolic 94–131; BP diastolic 55–84; PULSE 69–96; RESP 13–21; TEMP 97.9–98.6; O2SAT 98–100
[2023-12-09] MEDS: DEXTROSE 50% 50 ML SYR IVP PRN (03:30)
[2023-12-09 06:28] LABS: ALBUMIN 1.4 g/dL (3.4-5.0); ANION GAP 10.1 (8-16); CALCIUM 7.5 mg/dL (8.5-10.1); CARBON DIOXIDE 26.2 mmol/L (21-32); CREATININE 1.5 mg/dL (0.6-1.3); POTASSIUM 3.3 mmol/L (3.5-5.1); TOTAL BILIRUBIN 0.4 mg/dL (0.0-1.0); TOTAL PROTEIN, SERUM 5.8 g/dL (6.4-8.2)
[2023-12-09 06:45] LABS: BASOPHILS % (AUTO) 0.3 % (0.0-2.0); EOSINOPHILS # (AUTO) 0.1 K/uL (0-0.4); EOSINOPHILS % (AUTO) 1.3 % (0.0-4.0); HEMATOCRIT 21.3 % (36-52); HEMOGLOBIN 7.2 g/dL (12.0-18.0); LYMPHOCYTES # (AUTO) 0.7 K/uL (2.0-11.5); MEAN CORPUSCULAR HEMOGLOBIN 30 pg (27-31); MEAN CORPUSCULAR HGB CONC 34 g/dL (33-37); MEAN CORPUSCULAR VOLUME 87.8 fL (80-94); MONOCYTES # (AUTO) 0.3 K/uL (0.8-1.0); MONOCYTES % (AUTO) 6.2 % (1.7-9.3); NEUTROPHILS # (AUTO) 3.5 K/uL (1.8-7.7); NEUTROPHILS % (AUTO) 76.2 % (42.2-75.2); PLATELET COUNT (AUTO) 132 K/uL (140-450); RED BLOOD CELL COUNT(AUTO) 2.43 MIL/uL (4.20-6.10); RED CELL DISTRIBUTION WIDTH 14.8 % (11.6-13.7); WHITE BLOOD COUNT (AUTO) 4.5 K/uL (4.8-10.8)
[2023-12-09] MEDS: POTASSIUM CHLORIDE 20% 40 MEQ/15 ML UDC GT SCH (09:07)
[2023-12-09] MEDS ORDERED: diazePAM 2 MG TAB GT PRN (17:25)
[2023-12-10] VITALS (30 sets, daily range): BP systolic 101–157; BP diastolic 51–99; PULSE 64–127; RESP 14–32; TEMP 97.5–99.5; O2SAT 91–100
[2023-12-10] MEDS: DEXMEDETOMIDINE HCL 400 MCG in NACL 0.9% 96 ML IV PRN (03:34)
[2023-12-10 08:25] LABS: RED BLOOD CELL COUNT(AUTO) 1.78 MIL/uL (4.20-6.10); WHITE BLOOD COUNT (AUTO) 6.1 K/uL (4.8-10.8)
[2023-12-10 08:26] LABS: HEMOGLOBIN 5.2 g/dL (12.0-18.0)
[2023-12-10 08:27] LABS: HEMATOCRIT 15.3 % (36-52); MEAN CORPUSCULAR HEMOGLOBIN 30 pg (27-31); MEAN CORPUSCULAR HGB CONC 34 g/dL (33-37); PLATELET COUNT (AUTO) 170 K/uL (140-450); RED CELL DISTRIBUTION WIDTH 15.2 % (11.6-13.7)
[2023-12-10 08:28] LABS: BASOPHILS % (AUTO) 0.6 % (0.0-2.0); EOSINOPHILS # (AUTO) 0.1 K/uL (0-0.4); LYMPHOCYTES # (AUTO) 1.4 K/uL (2.0-11.5); LYMPHOCYTES % (AUTO) 22.6 % (20.5-51.1); MONOCYTES # (AUTO) 0.5 K/uL (0.8-1.0); MONOCYTES % (AUTO) 7.9 % (1.7-9.3); NEUTROPHILS # (AUTO) 4.2 K/uL (1.8-7.7); NEUTROPHILS % (AUTO) 66.9 % (42.2-75.2)
[2023-12-10 08:47] LABS: ANION GAP 15.4 (8-16); CALCIUM 7.6 mg/dL (8.5-10.1); CARBON DIOXIDE 22.3 mmol/L (21-32); POTASSIUM 3.7 mmol/L (3.5-5.1)
[2023-12-10 08:48] LABS: CREATININE 1.4 mg/dL (0.6-1.3); TOTAL BILIRUBIN 0.4 mg/dL (0.0-1.0)
[2023-12-10 08:49] LABS: ALBUMIN 1.4 g/dL (3.4-5.0)
[2023-12-10 08:59] LABS: TOTAL PROTEIN, SERUM 6.2 g/dL (6.4-8.2)
[2023-12-10] MEDS: QUEtiapine FUMARATE 100 MG TAB PO SCH (09:01)
[2023-12-10 09:14] LABS: BASOPHILS % (MANUAL) 0 % (0-2); EOSINOPHILS % (MANUAL) 5 % (0-4); LYMPHOCYTES % (MANUAL) 33 % (20-46); MONOCYTES % (MANUAL) 4 % (5-12); PLATELET ESTIMATE GIANT PLATELET SEEN
[2023-12-10 09:42] LABS: HEMATOCRIT 21.4 % (36-52)
[2023-12-10 09:48] LABS: HEMOGLOBIN 7.3 g/dL (12.0-18.0)
[2023-12-10 11:50] LABS: BLOOD GAS BASE EXCESS -3.1 mmol/L (-2.0-2.0); BLOOD GAS HCO3 20.4 mmol/L (22-26); BLOOD GAS O2 SAT% 96.7 % (92.0-98.5); BLOOD GAS PCO2 30.1 mmHg (35-45); BLOOD GAS PH 7.448 (7.35-7.45); BLOOD GAS PO2 91.4 mmHg (75-100)
[2023-12-10] MEDS ORDERED: ACETAMINOPHEN 100 ML IV PRN ×2 (18:10→20:25)
[2023-12-10] MEDS: ACETAMINOPHEN 100 ML IV ONE (19:24)
[2023-12-11] VITALS (19 sets, daily range): BP systolic 112–139; BP diastolic 54–97; PULSE 103–125; RESP 19–37; TEMP 98.1–99.5; O2SAT 94–100
[2023-12-11 05:24] LABS: BASOPHILS % (AUTO) 0.5 % (0.0-2.0); EOSINOPHILS % (AUTO) 0.3 % (0.0-4.0); HEMATOCRIT 21.5 % (36-52); HEMOGLOBIN 7.2 g/dL (12.0-18.0); LYMPHOCYTES # (AUTO) 1.1 K/uL (2.0-11.5); LYMPHOCYTES % (AUTO) 15.8 % (20.5-51.1); MEAN CORPUSCULAR HEMOGLOBIN 29 pg (27-31); MEAN CORPUSCULAR HGB CONC 34 g/dL (33-37); MEAN CORPUSCULAR VOLUME 87.3 fL (80-94); MONOCYTES # (AUTO) 0.5 K/uL (0.8-1.0); MONOCYTES % (AUTO) 7.3 % (1.7-9.3); NEUTROPHILS # (AUTO) 5.1 K/uL (1.8-7.7); NEUTROPHILS % (AUTO) 76.1 % (42.2-75.2); PLATELET COUNT (AUTO) 211 K/uL (140-450); RED BLOOD CELL COUNT(AUTO) 2.47 MIL/uL (4.20-6.10); RED CELL DISTRIBUTION WIDTH 14.9 % (11.6-13.7); WHITE BLOOD COUNT (AUTO) 6.7 K/uL (4.8-10.8)
[2023-12-11 05:58] LABS: ALBUMIN 1.6 g/dL (3.4-5.0); ANION GAP 15.9 (8-16); CALCIUM 7.8 mg/dL (8.5-10.1); CARBON DIOXIDE 20.7 mmol/L (21-32); CREATININE 1.3 mg/dL (0.6-1.3); POTASSIUM 3.6 mmol/L (3.5-5.1); TOTAL BILIRUBIN 0.7 mg/dL (0.0-1.0); TOTAL PROTEIN, SERUM 6.9 g/dL (6.4-8.2)
[2023-12-11] MEDS ORDERED: IPRATROPIUM 0.02% 0.5 MG/2.5 ML NEBU INH PRN (06:45)
[2023-12-11] MEDS ORDERED: LEVALBUTEROL 1.25 MG/0.5 ML NEBU INH PRN (06:45)
[2023-12-11] MEDS: LEVALBUTEROL 1.25 MG/0.5 ML NEBU INH SCH (07:46)
[2023-12-11] MEDS: IPRATROPIUM 0.02% 0.5 MG/2.5 ML NEBU INH SCH (07:46)
[2023-12-11] MEDS: ALTEPLASE 2 MG VIAL MC SCH (11:08)
[2023-12-11] MEDS: DEXT 5% / NACL 0.45% 1,000 ML IV SCH (13:31)
[2023-12-12] VITALS (12 sets, daily range): BP systolic 109–144; BP diastolic 62–81; PULSE 91–126; RESP 18–25; TEMP 95–99.3; O2SAT 92–99
[2023-12-12 05:41] LABS: BASOPHILS % (AUTO) 0.7 % (0.0-2.0); EOSINOPHILS # (AUTO) 0.1 K/uL (0-0.4); EOSINOPHILS % (AUTO) 1.5 % (0.0-4.0); HEMOGLOBIN 7.9 g/dL (12.0-18.0); LYMPHOCYTES # (AUTO) 1.3 K/uL (2.0-11.5); LYMPHOCYTES % (AUTO) 24.1 % (20.5-51.1); MEAN CORPUSCULAR HEMOGLOBIN 30 pg (27-31); MEAN CORPUSCULAR HGB CONC 34 g/dL (33-37); MEAN CORPUSCULAR VOLUME 86.4 fL (80-94); MONOCYTES # (AUTO) 0.5 K/uL (0.8-1.0); MONOCYTES % (AUTO) 9.4 % (1.7-9.3); NEUTROPHILS # (AUTO) 3.4 K/uL (1.8-7.7); NEUTROPHILS % (AUTO) 64.3 % (42.2-75.2); PLATELET COUNT (AUTO) 276 K/uL (140-450); RED BLOOD CELL COUNT(AUTO) 2.66 MIL/uL (4.20-6.10); RED CELL DISTRIBUTION WIDTH 14.4 % (11.6-13.7); WHITE BLOOD COUNT (AUTO) 5.3 K/uL (4.8-10.8)
[2023-12-12 06:00] LABS: ALBUMIN 1.7 g/dL (3.4-5.0); ANION GAP 13.7 (8-16); CALCIUM 8.1 mg/dL (8.5-10.1); TOTAL BILIRUBIN 0.5 mg/dL (0.0-1.0); TOTAL PROTEIN, SERUM 7.3 g/dL (6.4-8.2)
[2023-12-12 06:30] LABS: POTASSIUM 2.7 mmol/L (3.5-5.1)
[2023-12-12] MEDS ORDERED: DESMOPRESSIN 4 MCG/ML AMP IV SCH (09:00)
[2023-12-12] MEDS: KCL 20 MEQ IN 100 mL PREMIX 200 ML IV ONE (15:35)
[2023-12-13] VITALS (10 sets, daily range): BP systolic 105–120; BP diastolic 66–83; PULSE 99–117; RESP 14–20; TEMP 98–98.9; O2SAT 94–99
[2023-12-13 06:46] LABS: BASOPHILS % (AUTO) 0.6 % (0.0-2.0); EOSINOPHILS # (AUTO) 0.1 K/uL (0-0.4); EOSINOPHILS % (AUTO) 2.2 % (0.0-4.0); HEMATOCRIT 22.2 % (36-52); HEMOGLOBIN 7.6 g/dL (12.0-18.0); LYMPHOCYTES # (AUTO) 1.3 K/uL (2.0-11.5); MEAN CORPUSCULAR HEMOGLOBIN 30 pg (27-31); MEAN CORPUSCULAR HGB CONC 34 g/dL (33-37); MONOCYTES # (AUTO) 0.5 K/uL (0.8-1.0); MONOCYTES % (AUTO) 8.3 % (1.7-9.3); NEUTROPHILS # (AUTO) 4.5 K/uL (1.8-7.7); NEUTROPHILS % (AUTO) 68.9 % (42.2-75.2); PLATELET COUNT (AUTO) 376 K/uL (140-450); RED BLOOD CELL COUNT(AUTO) 2.55 MIL/uL (4.20-6.10); RED CELL DISTRIBUTION WIDTH 14.5 % (11.6-13.7); WHITE BLOOD COUNT (AUTO) 6.5 K/uL (4.8-10.8)
[2023-12-13 07:19] LABS: ALBUMIN 1.9 g/dL (3.4-5.0); ANION GAP 14.7 (8-16); CALCIUM 8.5 mg/dL (8.5-10.1); CARBON DIOXIDE 22.7 mmol/L (21-32); CREATININE 1.2 mg/dL (0.6-1.3); POTASSIUM 3.4 mmol/L (3.5-5.1); TOTAL BILIRUBIN 0.4 mg/dL (0.0-1.0); TOTAL PROTEIN, SERUM 7.7 g/dL (6.4-8.2)
[2023-12-13] MEDS: DESMOPRESSIN 4 MCG/ML AMP IV SCH (09:31)
[2023-12-13] MEDS: NACL 0.9% 1,000 ML IV SCH (12:53)
[2023-12-14] VITALS (14 sets, daily range): BP systolic 99–113; BP diastolic 57–72; PULSE 99–116; RESP 16–22; TEMP 98.1–99.2; O2SAT 96–99
[2023-12-14 11:02] LABS: BASOPHILS % (AUTO) 0.7 % (0.0-2.0); EOSINOPHILS # (AUTO) 0.1 K/uL (0-0.4); LYMPHOCYTES # (AUTO) 1.3 K/uL (2.0-11.5); LYMPHOCYTES % (AUTO) 22.8 % (20.5-51.1); MEAN CORPUSCULAR HEMOGLOBIN 30 pg (27-31); MEAN CORPUSCULAR HGB CONC 34 g/dL (33-37); MEAN CORPUSCULAR VOLUME 86.8 fL (80-94); MONOCYTES # (AUTO) 0.8 K/uL (0.8-1.0); MONOCYTES % (AUTO) 13.5 % (1.7-9.3); NEUTROPHILS # (AUTO) 3.6 K/uL (1.8-7.7); PLATELET COUNT (AUTO) 411 K/uL (140-450); RED CELL DISTRIBUTION WIDTH 14.5 % (11.6-13.7); WHITE BLOOD COUNT (AUTO) 5.9 K/uL (4.8-10.8)
[2023-12-14 11:23] LABS: ALBUMIN 1.8 g/dL (3.4-5.0); ANION GAP 12.3 (8-16); CALCIUM 7.9 mg/dL (8.5-10.1); CARBON DIOXIDE 22.7 mmol/L (21-32); CREATININE 1.1 mg/dL (0.6-1.3); TOTAL BILIRUBIN 0.3 mg/dL (0.0-1.0); TOTAL PROTEIN, SERUM 7.1 g/dL (6.4-8.2)
[2023-12-14 11:26] LABS: HEMOGLOBIN 6.8 g/dL (12.0-18.0)
[2023-12-14 23:37] LABS: BASOPHILS # (AUTO) 0.1 K/uL (0.00-0.22); BASOPHILS % (AUTO) 1.4 % (0.0-2.0); EOSINOPHILS # (AUTO) 0.1 K/uL (0-0.4); EOSINOPHILS % (AUTO) 1.9 % (0.0-4.0); HEMATOCRIT 21.6 % (36-52); HEMOGLOBIN 7.5 g/dL (12.0-18.0); LYMPHOCYTES # (AUTO) 1.9 K/uL (2.0-11.5); MEAN CORPUSCULAR HEMOGLOBIN 30 pg (27-31); MEAN CORPUSCULAR HGB CONC 35 g/dL (33-37); MEAN CORPUSCULAR VOLUME 85.9 fL (80-94); MONOCYTES # (AUTO) 0.7 K/uL (0.8-1.0); MONOCYTES % (AUTO) 9.7 % (1.7-9.3); PLATELET COUNT (AUTO) 444 K/uL (140-450); RED BLOOD CELL COUNT(AUTO) 2.51 MIL/uL (4.20-6.10); RED CELL DISTRIBUTION WIDTH 14.6 % (11.6-13.7); WHITE BLOOD COUNT (AUTO) 6.7 K/uL (4.8-10.8)
[2023-12-15] VITALS (12 sets, daily range): BP systolic 90–122; BP diastolic 55–77; PULSE 96–132; RESP 14–19; TEMP 97.2–98.6; O2SAT 95–100
[2023-12-15 06:48] LABS: BASOPHILS % (AUTO) 0.7 % (0.0-2.0); EOSINOPHILS # (AUTO) 0.1 K/uL (0-0.4); EOSINOPHILS % (AUTO) 1.6 % (0.0-4.0); HEMATOCRIT 21.3 % (36-52); HEMOGLOBIN 7.4 g/dL (12.0-18.0); LYMPHOCYTES # (AUTO) 2.2 K/uL (2.0-11.5); LYMPHOCYTES % (AUTO) 30.6 % (20.5-51.1); MEAN CORPUSCULAR HEMOGLOBIN 30 pg (27-31); MEAN CORPUSCULAR HGB CONC 35 g/dL (33-37); MEAN CORPUSCULAR VOLUME 86.3 fL (80-94); MONOCYTES # (AUTO) 0.8 K/uL (0.8-1.0); MONOCYTES % (AUTO) 10.5 % (1.7-9.3); NEUTROPHILS # (AUTO) 4.1 K/uL (1.8-7.7); NEUTROPHILS % (AUTO) 56.6 % (42.2-75.2); PLATELET COUNT (AUTO) 450 K/uL (140-450); RED BLOOD CELL COUNT(AUTO) 2.46 MIL/uL (4.20-6.10); RED CELL DISTRIBUTION WIDTH 14.9 % (11.6-13.7); WHITE BLOOD COUNT (AUTO) 7.3 K/uL (4.8-10.8)
[2023-12-15 07:14] LABS: ANION GAP 13.6 (8-16); CALCIUM 8.3 mg/dL (8.5-10.1); CARBON DIOXIDE 22.9 mmol/L (21-32); POTASSIUM 3.5 mmol/L (3.5-5.1)
[2023-12-15] MEDS: BLOOD GLUCOSE MONITORING 1 DEV DEV FS SCH (07:36)
[2023-12-15] MEDS ORDERED: NACL 0.9% 500 ML IV SCH (15:05)
[2023-12-15] MEDS: METOPROLOL 25 MG TAB ONE (15:16)
[2023-12-15] MEDS: METOPROLOL 25 MG TAB PO SCH (15:17)
[2023-12-15 15:48] LABS: BASOPHILS # (AUTO) 0.1 K/uL (0.00-0.22); BASOPHILS % (AUTO) 0.9 % (0.0-2.0); EOSINOPHILS % (AUTO) 0.7 % (0.0-4.0); HEMATOCRIT 21.6 % (36-52); HEMOGLOBIN 7.6 g/dL (12.0-18.0); LYMPHOCYTES # (AUTO) 0.5 K/uL (2.0-11.5); LYMPHOCYTES % (AUTO) 7.2 % (20.5-51.1); MEAN CORPUSCULAR HEMOGLOBIN 30 pg (27-31); MEAN CORPUSCULAR HGB CONC 35 g/dL (33-37); MEAN CORPUSCULAR VOLUME 84.7 fL (80-94); MONOCYTES # (AUTO) 0.3 K/uL (0.8-1.0); NEUTROPHILS # (AUTO) 6.2 K/uL (1.8-7.7); NEUTROPHILS % (AUTO) 87.2 % (42.2-75.2); PLATELET COUNT (AUTO) 390 K/uL (140-450); RED BLOOD CELL COUNT(AUTO) 2.55 MIL/uL (4.20-6.10); RED CELL DISTRIBUTION WIDTH 14.8 % (11.6-13.7); WHITE BLOOD COUNT (AUTO) 7.1 K/uL (4.8-10.8)
[2023-12-15] MEDS: NACL 0.9% 1,000 ML IV SCH (16:30)
[2023-12-15] MEDS: guaiFENesin 20 MG/ML UDC PO PRN (16:34)
[2023-12-15] MEDS ORDERED: METOPROLOL 25 MG TAB PO SCH (21:00)
[2023-12-16] VITALS (13 sets, daily range): BP systolic 93–110; BP diastolic 53–65; PULSE 94–129; RESP 14–18; TEMP 97.4–98.7; O2SAT 96–100
[2023-12-16 06:51] LABS: BASOPHILS # (AUTO) 0.1 K/uL (0.00-0.22); BASOPHILS % (AUTO) 1.1 % (0.0-2.0); EOSINOPHILS # (AUTO) 0.1 K/uL (0-0.4); EOSINOPHILS % (AUTO) 2.6 % (0.0-4.0); HEMATOCRIT 20.5 % (36-52); HEMOGLOBIN 7.2 g/dL (12.0-18.0); LYMPHOCYTES # (AUTO) 1.5 K/uL (2.0-11.5); LYMPHOCYTES % (AUTO) 27.1 % (20.5-51.1); MEAN CORPUSCULAR HEMOGLOBIN 30 pg (27-31); MEAN CORPUSCULAR HGB CONC 35 g/dL (33-37); MEAN CORPUSCULAR VOLUME 85.9 fL (80-94); MONOCYTES # (AUTO) 0.6 K/uL (0.8-1.0); MONOCYTES % (AUTO) 10.9 % (1.7-9.3); NEUTROPHILS # (AUTO) 3.2 K/uL (1.8-7.7); NEUTROPHILS % (AUTO) 58.3 % (42.2-75.2); PLATELET COUNT (AUTO) 409 K/uL (140-450); RED BLOOD CELL COUNT(AUTO) 2.39 MIL/uL (4.20-6.10); WHITE BLOOD COUNT (AUTO) 5.5 K/uL (4.8-10.8)
[2023-12-16 07:45] LABS: ANION GAP 12.4 (8-16); CALCIUM 7.8 mg/dL (8.5-10.1); CARBON DIOXIDE 22.1 mmol/L (21-32); CREATININE 1.1 mg/dL (0.6-1.3); POTASSIUM 3.5 mmol/L (3.5-5.1)
[2023-12-17] VITALS (7 sets, daily range): BP systolic 99–101; BP diastolic 59–62; PULSE 91–98; RESP 16–18; TEMP 97.6–98; O2SAT 93–98
[2023-12-17 06:57] LABS: BASOPHILS % (AUTO) 0.8 % (0.0-2.0); EOSINOPHILS # (AUTO) 0.1 K/uL (0-0.4); EOSINOPHILS % (AUTO) 2.6 % (0.0-4.0); HEMATOCRIT 20.6 % (36-52); HEMOGLOBIN 7.2 g/dL (12.0-18.0); LYMPHOCYTES # (AUTO) 1.8 K/uL (2.0-11.5); LYMPHOCYTES % (AUTO) 31.6 % (20.5-51.1); MEAN CORPUSCULAR HEMOGLOBIN 30 pg (27-31); MEAN CORPUSCULAR HGB CONC 35 g/dL (33-37); MEAN CORPUSCULAR VOLUME 86.4 fL (80-94); MONOCYTES # (AUTO) 0.8 K/uL (0.8-1.0); MONOCYTES % (AUTO) 14.7 % (1.7-9.3); NEUTROPHILS # (AUTO) 2.8 K/uL (1.8-7.7); NEUTROPHILS % (AUTO) 50.3 % (42.2-75.2); PLATELET COUNT (AUTO) 460 K/uL (140-450); RED BLOOD CELL COUNT(AUTO) 2.39 MIL/uL (4.20-6.10); WHITE BLOOD COUNT (AUTO) 5.6 K/uL (4.8-10.8)
[2023-12-17 07:27] LABS: ANION GAP 14.6 (8-16); CALCIUM 8.2 mg/dL (8.5-10.1); CARBON DIOXIDE 22.1 mmol/L (21-32); CREATININE 1.1 mg/dL (0.6-1.3); POTASSIUM 3.7 mmol/L (3.5-5.1)
[2023-12-17] MEDS ORDERED: GLUC-805 FS (09:56)
[2023-12-17] MEDS ORDERED: HUMSLIDE SUBQ (09:56)
[2023-12-17] MEDS ORDERED: LANTUS SUBQ (09:56)
[2023-12-17] MEDS ORDERED: PRO5 PO (09:56)
[2023-12-17] MEDS ORDERED: FERR324T11 PO (11:19)
== END 2023-12-17 11:22 | disposition home health service (06) | DRG 720 ==
LOC: MED 17:16 → MTU 22:55 → MIC 23:06 → MTU 12-12 09:45
PROVIDERS: ADMIT Student in an Organized Health Care Education/Training Program; ATTEND Student in an Organized Health Care Education/Training Program
PROC: 0BH18EZ Insertion of Endotracheal Airway into Trachea, Via Natural or Artificial Opening Endoscopic (ICD-10-PCS; principal; 2023-11-28)
PROC: 5A1955Z Respiratory Ventilation, Greater than 96 Consecutive Hours (ICD-10-PCS; 2023-11-28)
PROC: 5A0935A Assistance with Respiratory Ventilation, Less than 24 Consecutive Hours, High Flow/Velocity Cannula (ICD-10-PCS; 2023-11-28)
PROC: 06HY33Z Insertion of Infusion Device into Lower Vein, Percutaneous Approach (ICD-10-PCS; 2023-11-29)
PROC: B54BZZA Ultrasonography of Right Lower Extremity Veins, Guidance (ICD-10-PCS; 2023-11-29)
PROC: 5A0945A Assistance with Respiratory Ventilation, 24-96 Consecutive Hours, High Flow/Velocity Cannula (ICD-10-PCS; 2023-12-10)
PROC: 5A0935A Assistance with Respiratory Ventilation, Less than 24 Consecutive Hours, High Flow/Velocity Cannula (ICD-10-PCS; 2023-12-12)
PROC: 30233N1 Transfusion of Nonautologous Red Blood Cells into Peripheral Vein, Percutaneous Approach (ICD-10-PCS; 2023-12-14)
DX: A41.9 Sepsis, unspecified organism (principal); J96.01 Acute respiratory failure with hypoxia; N17.0 Acute kidney failure with tubular necrosis; R65.21 Severe sepsis with septic shock; J18.9 Pneumonia, unspecified organism; E11.10 Type 2 diabetes mellitus with ketoacidosis without coma; G93.41 Metabolic encephalopathy; D69.6 Thrombocytopenia, unspecified; Z20.822 Contact with and (suspected) exposure to COVID-19; L03.115 Cellulitis of right lower limb; E87.5 Hyperkalemia; K56.41 Fecal impaction; E87.6 Hypokalemia; E83.39 Other disorders of phosphorus metabolism; E87.0 Hyperosmolality and hypernatremia; E11.622 Type 2 diabetes mellitus with other skin ulcer; L97.918 Non-pressure chronic ulcer of unspecified part of right lower leg with other specified severity; B37.49 Other urogenital candidiasis; E11.69 Type 2 diabetes mellitus with other specified complication; M86.8X6 Other osteomyelitis, lower leg; D64.9 Anemia, unspecified
CPT/HCPCS: 31500; 36415; 36600; 70450; 71045; 73590; 73700; 74018; 80048; 80053; 80076; 80202; 81001; 82009; 82550; 82803; 82948; 83036; 83605; 83690; 83735; 84100; 84484; 85018; 85025; 85379; 85384; 85610; 85730; 86886; 86900; 86901; 86920; 87040; 87070; 87075; 87081; 87086; 87186; 87205; 89220; 92526; 93005; 94002; 94003; 94010; 94640; 96361; 96375; 97110; 97116; 97163-GP; 97530; 99291; 99292; C9113; G0480; G0482; J1450; J1644; J1815; J1940; J2060; J2185; J2543; J2597; J2704; J2997; J3010; J3370; J3372; J3475; J3480; J3490; J7030; J7060; J7612; J7644; P9016; Q0092